=== PATIENT | female | born 1965 | race Caucasian/White ===

== ENCOUNTER 2016-11-26 09:49 | Emergency (ER) | payer BC | END 2016-11-26 10:20 | disposition home or self-care (01) | LOC: ER 09:49 | DX: S20.212A Contusion of left front wall of thorax, initial encounter (principal); F17.200 Nicotine dependence, unspecified, uncomplicated; F41.9 Anxiety disorder, unspecified; Z88.2 Allergy status to sulfonamides; W01.198A Fall on same level from slipping, tripping and stumbling with subsequent striking against other object, initial encounter | CPT/HCPCS: 71020; 71100-LT; 96372; 99283; J1170; J2550 ==